=== PATIENT | female | born 1930 | race Caucasian/White ===

== ENCOUNTER 2016-11-04 22:15 | Emergency (ER) | payer OTHER ==
[2016-11-04 23:17] VITALS: BP 156/76
== END 2016-11-04 23:17 | disposition home or self-care (01) ==
LOC: ED 22:15
DX: F41.9 Anxiety disorder, unspecified (principal); I16.0 Hypertensive urgency; I10 Essential (primary) hypertension; E11.9 Type 2 diabetes mellitus without complications; Z79.899 Other long term (current) drug therapy; Z88.0 Allergy status to penicillin
CPT/HCPCS: 82962

== ENCOUNTER 2017-04-25 19:29 | Emergency (ER) | payer OTHER ==
[~2017-04-25] VITALS: Ht 157.5 cm; Wt 53.1 kg
[2017-04-25 19:33] VITALS: Ht 157.5 cm; Wt 53.1 kg
[2017-04-25 20:10] LABS: BASOPHIL % 0.8 % (0-2); PLATELET COUNT 146 x10^3mcL (130-400); RED CELL DISTRIBUTION WIDTH 13.8 % (11.5-14.5)
[2017-04-25 20:19] LABS: CALCIUM 9.7 mg/dL (8.5-10.1); CARBON DIOXIDE 25.2 mmol/L (21-32); CHLORIDE SERUM 106 mmol/L (98-107); CREATININE SERUM 0.8 mg/dL (0.6-1.0); GLUCOSE SERUM 167 mg/dL (74-106); SODIUM SERUM 140 mmol/L (136-145)
[2017-04-25 20:22] LABS: ALKALINE PHOSPHATASE 101 U/L (46-116); ALT/SGPT 23 U/L (14-59); BILIRUBIN TOTAL 0.46 mg/dL (0.20-1.00); MAGNESIUM 1.9 mg/dL (1.8-2.4); TOTAL PROTEIN, SERUM 7.4 g/dL (6.4-8.2)
[2017-04-25 20:32] LABS: AST/SGOT 18 U/L (15-37)
[2017-04-25 21:15] LABS: microscopic required? YES; urine erythrocyte NEGATIVE (NEGATIVE)
[2017-04-25 22:38] VITALS: BP 142/69
== END 2017-04-25 22:38 | disposition home or self-care (01) ==
LOC: ED 19:29
PROVIDERS: Emergency Medicine
DX: N39.0 Urinary tract infection, site not specified (principal); E86.0 Dehydration; I10 Essential (primary) hypertension; E11.9 Type 2 diabetes mellitus without complications; Z88.0 Allergy status to penicillin
CPT/HCPCS: 36415; 83880; J7040; Q0092

== ENCOUNTER 2017-05-20 05:46 | Day surgery (SDC) | payer OTHER ==
[~2017-05-20] VITALS: Ht 149.9 cm; Wt 48.1 kg
[2017-05-20 06:38] VITALS: BP 147/67
[2017-05-20 10:26] VITALS: BP 124/61
== END 2017-05-20 10:15 | disposition home or self-care (01) ==
LOC: GI 05:46 → OR 07:30 → GI 10:15
PROVIDERS: Internal Medicine
PROC: 0F798DZ Dilation of Common Bile Duct with Intraluminal Device, Via Natural or Artificial Opening Endoscopic (ICD-10-PCS; principal; 2017-05-20 07:30)
DX: K86.89 Other specified diseases of pancreas (principal); K82.8 Other specified diseases of gallbladder; K29.70 Gastritis, unspecified, without bleeding; E11.9 Type 2 diabetes mellitus without complications; E78.5 Hyperlipidemia, unspecified; I10 Essential (primary) hypertension; Z68.21 Body mass index [BMI] 21.0-21.9, adult; Z79.84 Long term (current) use of oral hypoglycemic drugs
CPT/HCPCS: 43262; 82962; C1769; C2625; J1610; J2175; J2250; J2704; J7030; Q9967

== ENCOUNTER 2018-04-06 23:12 | Emergency (ER) | payer OTHER ==
[~2018-04-06] VITALS: Ht 149.9 cm; Wt 44.0 kg
[2018-04-06 23:21] VITALS: Ht 149.9 cm; Wt 44.0 kg
[2018-04-07 01:00] VITALS: BP 136/65
== END 2018-04-07 01:09 | disposition home or self-care (01) ==
LOC: ED 23:12
DX: I10 Essential (primary) hypertension (principal); F41.9 Anxiety disorder, unspecified; E11.9 Type 2 diabetes mellitus without complications; Z85.9 Personal history of malignant neoplasm, unspecified; Z88.0 Allergy status to penicillin

== ENCOUNTER 2019-01-30 09:19 | Emergency (ER) | payer OTHER ==
[~2019-01-30] VITALS: Ht 132.1 cm; Wt 40.4 kg
[2019-01-30 09:36] VITALS: Ht 132.1 cm; Wt 40.4 kg
[2019-01-30 10:34] VITALS: BP 127/55
== END 2019-01-30 10:34 | disposition home or self-care (01) ==
LOC: ED 09:19
DX: I16.0 Hypertensive urgency (principal); F41.9 Anxiety disorder, unspecified; E11.9 Type 2 diabetes mellitus without complications; Z88.0 Allergy status to penicillin